=== PATIENT | male | born 1995 | race Caucasian/White ===

== ENCOUNTER 2023-12-07 07:58 | Emergency (ER) | payer SELFPAY ==
[~2023-12-07] VITALS: Ht 180.3 cm; Wt 108.6 kg
[2023-12-07 08:12] VITALS: BP 141/95; PULSE 78; RESP 16; TEMP 98.7; O2SAT 98
[2023-12-07] MEDS ORDERED: IBUP-2213 PO (08:55)
[2023-12-07 09:06] VITALS: BP 141/95; PULSE 78; RESP 16; TEMP 98.7; O2SAT 98
--- NOTE | 2023-12-07 09:08 | NUR ---
Patient discharged with v/s stable. Written and verbal after care instructions given and explained. Patient verbalized understanding. Ambulatory with steady gait. All questions addressed prior to discharge. Advised to follow up with PMD.
== END 2023-12-07 09:08 | disposition home or self-care (01) ==
LOC: MED 07:58
DX: S61.217A Laceration without foreign body of left little finger without damage to nail, initial encounter (principal); R03.0 Elevated blood-pressure reading, without diagnosis of hypertension; X58.XXXA Exposure to other specified factors, initial encounter; Y93.89 Activity, other specified; Y92.89 Other specified places as the place of occurrence of the external cause; Y99.8 Other external cause status
CPT/HCPCS: 99282